=== PATIENT | female | born 1990 | race African-American/Black ===

== ENCOUNTER 2017-05-29 19:07 | Emergency (ER) | payer MEDICAID, OTHER ==
[~2017-05-29] VITALS: Ht 170.2 cm; Wt 111.0 kg
[2017-05-29 19:43] VITALS: BP 184/96
== END 2017-05-29 23:00 | disposition left against medical advice (07) ==
LOC: ER 19:07
DX: J02.9 Acute pharyngitis, unspecified (principal); Z53.21 Procedure and treatment not carried out due to patient leaving prior to being seen by health care provider

== ENCOUNTER 2018-02-18 14:59 | Emergency (ER) | payer SELFPAY ==
[~2018-02-18] VITALS: Ht 170.2 cm; Wt 11.0 kg
[2018-02-18 15:03] VITALS: BP 162/96
[2018-02-18] MEDS ORDERED: LIDOCAINE HCL 1%/EPI 1:200,000 30 ML VIAL MC ONE (17:15)
[2018-02-18] MEDS ORDERED: IBUPROFEN 600MG TABLET PO ONE (17:15)
[2018-02-18] MEDS ORDERED: BACITRACIN ZINC OINT UDPKT TOP ONE (17:15)
== END 2018-02-18 18:10 | disposition home or self-care (01) ==
LOC: ER 15:50
DX: S61.210A Laceration without foreign body of right index finger without damage to nail, initial encounter (principal); Z88.0 Allergy status to penicillin; W22.8XXA Striking against or struck by other objects, initial encounter; Y93.89 Activity, other specified; Y92.89 Other specified places as the place of occurrence of the external cause; Y99.8 Other external cause status
CPT/HCPCS: 12001; 99283

== ENCOUNTER 2018-02-20 12:55 | Emergency (ER) | payer SELFPAY ==
[~2018-02-20] VITALS: Ht 170.2 cm; Wt 111.0 kg
[2018-02-20 13:09] VITALS: BP 134/80
== END 2018-02-20 13:39 | disposition home or self-care (01) ==
LOC: ER 12:55
DX: Z48.00 Encounter for change or removal of nonsurgical wound dressing (principal); Z88.0 Allergy status to penicillin
CPT/HCPCS: 99281

== ENCOUNTER 2018-02-26 13:01 | Emergency (ER) | payer SELFPAY ==
[~2018-02-26] VITALS: Ht 170.2 cm; Wt 91.0 kg
[2018-02-26 13:09] VITALS: BP 122/75
== END 2018-02-26 14:30 | disposition left against medical advice (07) ==
LOC: ER 13:39
DX: Z53.21 Procedure and treatment not carried out due to patient leaving prior to being seen by health care provider (principal)

== ENCOUNTER 2018-02-26 18:46 | Emergency (ER) | payer SELFPAY ==
[~2018-02-26] VITALS: Ht 170.2 cm; Wt 111.0 kg
[2018-02-26 19:18] VITALS: BP 133/76
== END 2018-02-26 19:30 | disposition home or self-care (01) ==
LOC: ER 18:46
DX: Z48.02 Encounter for removal of sutures (principal)
CPT/HCPCS: 99283

== ENCOUNTER 2022-03-28 22:31 | Emergency (ER) | payer OTHER ==
[~2022-03-28] VITALS: Ht 172.7 cm; Wt 110.0 kg
[2022-03-28] MEDS ORDERED: BACITRACIN ZINC OINT UDPKT TOP ONE (22:45)
[2022-03-28] MEDS ORDERED: HYDROCODONE/ACETAMINOPHEN 5/325MG TABLET PO ONE (22:45)
[2022-03-28] MEDS ORDERED: TETANUS, DIPHTHERIA, PERTUSSIS VAC/PF 0.5ML (>10YR OLD) IM ONE (22:45)
[2022-03-28 23:05] VITALS: BP 134/68
[2022-03-29] MEDS ORDERED: BO1 TP (00:07)
[2022-03-29] MEDS ORDERED: [UNRECOGNIZED DRUG - CODE] TP (00:07)
[2022-03-29] MEDS ORDERED: PETR1BAN35 TP (00:07)
== END 2022-03-29 00:24 | disposition home or self-care (01) ==
LOC: ER 22:31
DX: T24.211A Burn of second degree of right thigh, initial encounter (principal); T31.0 Burns involving less than 10% of body surface; X10.2XXA Contact with fats and cooking oils, initial encounter; Y93.G3 Activity, cooking and baking; Y92.010 Kitchen of single-family (private) house as the place of occurrence of the external cause; Z88.0 Allergy status to penicillin
CPT/HCPCS: 16020; 90471; 90715; 99283

== ENCOUNTER 2022-09-04 05:56 | Emergency (ER) | payer OTHER ==
[~2022-09-04] VITALS: Ht 172.7 cm; Wt 102.3 kg
[~2022-09-04 05:56] MED LIST: BO1 TP; PETR1BAN35 TP; [UNRECOGNIZED DRUG - CODE] TP
[2022-09-04 06:41] VITALS: BP 141/75
[2022-09-04] MEDS ORDERED: P20 MT (08:14)
[2022-09-04] MEDS ORDERED: PREDNISONE 20MG TABLET PO ONE (08:15)
[2022-09-04] MEDS ORDERED: DIPHENHYDRAMINE 25MG CAPSULE PO ONE (08:15)
== END 2022-09-04 09:12 | disposition home or self-care (01) ==
LOC: ER 05:56
DX: L30.9 Dermatitis, unspecified (principal); R03.0 Elevated blood-pressure reading, without diagnosis of hypertension; Z88.0 Allergy status to penicillin
CPT/HCPCS: 81025; 99283; J7512; Q0163

== ENCOUNTER 2024-12-22 17:42 | Emergency (ER) | payer SELFPAY ==
[~2024-12-22] VITALS: Ht 170.2 cm; Wt 81.6 kg
[~2024-12-22 17:42] MED LIST changes: +P20 MT
[2024-12-22 17:59] VITALS: BP 146/86; PULSE 98; RESP 18; TEMP 36.7; O2SAT 100
[2024-12-22] MEDS ORDERED: ACET-2708 MT (21:04)
[2024-12-22] MEDS ORDERED: AZIT250T12 MT (21:04)
== END 2024-12-22 21:21 | disposition home or self-care (01) ==
LOC: ER 17:42
DX: H66.93 Otitis media, unspecified, bilateral (principal); F10.90 Alcohol use, unspecified, uncomplicated; Z88.0 Allergy status to penicillin; Y90.9 Presence of alcohol in blood, level not specified
CPT/HCPCS: 99283

== ENCOUNTER 2025-08-24 12:58 | Emergency (ER) | payer OTHER, MEDICAID ==
[~2025-08-24] VITALS: Ht 170.2 cm; Wt 109.0 kg
[~2025-08-24 12:58] MED LIST changes: +ACET-2708 MT; +AZIT250T12 MT
[2025-08-24 13:02] VITALS: O2SAT 98
[2025-08-24] MEDS: ACETAMINOPHEN 325MG TABLET PO ONE (13:43)
[2025-08-24 16:18] VITALS: BP 127/73; PULSE 85; RESP 16; TEMP 36.8; O2SAT 100
== END 2025-08-24 16:20 | disposition home or self-care (01) ==
LOC: ER 12:58
DX: R51.9 Headache, unspecified (principal); M79.18 Myalgia, other site; F10.90 Alcohol use, unspecified, uncomplicated; Z88.0 Allergy status to penicillin; V89.2XXA Person injured in unspecified motor-vehicle accident, traffic, initial encounter; Y93.89 Activity, other specified; Y92.410 Unspecified street and highway as the place of occurrence of the external cause; Y99.8 Other external cause status; Y90.9 Presence of alcohol in blood, level not specified
CPT/HCPCS: 99284